=== PATIENT | female | born 1965 | race Caucasian/White ===

== ENCOUNTER 2017-03-08 17:03 | Emergency (ER) | payer OTHER ==
[2017-03-08 17:13] VITALS: RESP 18; TEMP 97.9
--- NOTE | 2017-03-08 17:37 | EDPHY ---
H & P Stated Complaint: rt flank pain Time Seen by Provider: 03/08/17 17:29 HPI/ROS: CHIEF COMPLAINT: Right flank pain HISTORY OF PRESENT ILLNESS: The patient presents to the ED with atraumatic right flank pain which began several hours prior to arrival. She describes a colicky pain which radiates to her right lower quadrant. She denies associated hematuria or dysuria. The patient has no history of pyelonephritis or nephrolithiasis. The patient has no significant past medical history. The patient currently rates her pain as a 5/10. REVIEW OF SYSTEMS: A comprehensive 10 point review of systems is otherwise negative aside from elements mentioned in the history of present illness. Source: Patient Exam Limitations: No limitations - Personal History LMP (Females 10-55): Post Menopausal Current Tetanus/Diphtheria Vaccine: Yes - Medical/Surgical History Hx Asthma: No Hx Chronic Respiratory Disease: No Hx Diabetes: No Hx Cardiac Disease: No Hx Renal Disease: No Hx Cirrhosis: No Hx Alcoholism: No Hx HIV/AIDS: No Hx Splenectomy or Spleen Trauma: No Other PMH: 2 c-sections - Social History Smoking Status: Never smoked - Physical Exam Exam: General Appearance: Alert, mild discomfort Eyes: Pupils equal and round no pallor or injection ENT, Mouth: Mucous membranes moist Respiratory: There are no retractions, lungs are clear to auscultation Cardiovascular: Regular rate and rhythm Gastrointestinal: Right CVA tenderness, tenderness to palpation right lower quadrant Neurological: A&O, normal motor function, normal sensory exam, normal cranial nerves Skin: Warm and dry, no rashes Musculoskeletal: Neck is supple nontender, right sacroiliac tenderness Extremities: symmetrical, full range of motion Constitutional: Initial Vital Signs Temperature (C) 36.6 C 03/08/17 17:11 Heart Rate 88 03/08/17 17:11 Respiratory Rate 18 03/08/17 17:11 Blood Pressure 126/75 H 03/08/17 17:11 O2 Sat (%) 97 03/08/17 17:11 O2 Delivery Mode Room Air Allergies/Adverse Reactions: No Known Allergies Allergy (Unverified 03/14/15 15:57) Home Medications: Medication Instructions Recorded Diazepam [Valium 10 MG (RX)] 10 mg PO TID PRN #20 tab 03/08/17 Hydrocodone/APAP 5/325 [[place] 1 - 2 each PO Q6 PRN #20 tab 03/08/17 5/325] Medical Decision Making - Diagnostics Imaging Results: Imaging Impressions Abdomen/Pelvis CT 03/08/17 18:04 Impression: 1. No evidence of urinary tract calculus. 2. Lobulated soft tissue mass left posterior ischiorectal fossa. The etiology is indeterminate. This abuts versus arises from the left posterior lateral rectal wall. Possibilities include enteric duplication cyst versus hematoma, teratoma, or other soft tissue tumor. 3. IUD in good position within the endometrial canal. 4. Constipation associated with the descending colon. Findings discussed with Farooq Garcia M.D. at 18:56 hour, 03/08/2017. Attention: This CT examination is specifically designed to evaluate patients who are clinically suspected of having acute obstructive uropathy. This examination does not use radiographic contrast, and as such, provides only a limited evaluation of the abdomen, pelvis and retroperitoneum. If there is further clinical suspicion for pathological conditions other than obstructive uropathy, a complete CT evaluation of the abdomen and pelvis utilizing intravenous, oral, and rectal contrast should be considered. ED Course/Re-evaluation: The patient presents to the ED with atraumatic right flank and right sacroiliac pain that began earlier today. The patient did go on a 20 mild bicycle ride but reports this is not unusual for her. She has has no history of kidney stones. Patient is noted to be neurologically intact. Given the patient's undifferentiated pain, a CT scan of the abdomen pelvis was ordered which demonstrates no evidence of nephrolithiasis. The patient did receive IV Toradol. She also received 4 mg of IV morphine. The patient's laboratory studies and urinalysis are unremarkable. I re-evaluated the patient at 8:10 p.m.. She does have right sacroiliac tenderness. I believe the etiology of her symptoms are likely sacroiliitis. She has no abnormalities noted in her neurologic examination. The patient will be discharged home with a prescription for narcotic pain medications and a muscle relaxant. She is advised to take ibuprofen as needed for pain. The patient will follow up with our clerk specialist for further evaluation. She is discharged home with customary aftercare instructions and return precautions. Differential Diagnosis: Differential diagnosis considered includes nephrolithiasis, pyelonephritis, myofascial strain, lumbar disc herniation, sacroiliitis - Data Points Laboratory Results: Laboratory Results 03/08/17 17:30 03/08/17 17:30 03/08/17 03/08/17 03/08/17 17:30 17:30 17:30 WBC 8.27 10^3/uL 10^3/uL (3.80-9.50) RBC 4.55 10^6/uL 10^6/uL (4.18-5.33) Hgb 14.4 g/dL g/dL (12.6-16.3) Hct 42.2 % % (38.0-47.0) MCV 92.7 fL fL (81.5-99.8) MCH 31.6 pg pg (27.9-34.1) MCHC 34.1 g/dL g/dL (32.4-36.7) RDW 12.3 % % (11.5-15.2) Plt Count 203 10^3/uL 10^3/uL (150-400) MPV 9.8 fL fL (8.7-11.7) Neut % (Auto) 65.2 % % (39.3-74.2) Lymph % (Auto) 26.1 % % (15.0-45.0) Grand % (Auto) 6.8 % % (4.5-13.0) Eos % (Auto) 0.7 % % (0.6-7.6) Baso % (Auto) 0.7 % % (0.3-1.7) Nucleat RBC Rel Count 0.0 % % (0.0-0.2) Absolute Neuts (auto) 5.39 10^3/uL 10^3/uL (1.70-6.50) Absolute Lymphs (auto) 2.16 10^3/uL 10^3/uL (1.00-3.00) Absolute Monos (auto) 0.56 10^3/uL 10^3/uL (0.30-0.80) Absolute Eos (auto) 0.06 10^3/uL 10^3/uL (0.03-0.40) Absolute Basos (auto) 0.06 10^3/uL 10^3/uL (0.02-0.10) Absolute Nucleated RBC 0.00 10^3/uL 10^3/uL (0-0.01) Immature Gran % 0.5 % % (0.0-1.1) Immature Gran # 0.04 10^3/uL 10^3/uL (0.00-0.10) Sodium 141 mEq/L mEq/L (134-144) Potassium 3.8 mEq/L mEq/L (3.5-5.2) Chloride 109 mEq/L mEq/L (97-110) Carbon Dioxide 23 mEq/l mEq/l (22-31) Anion Gap 9 mEq/L mEq/L (8-16) BUN 20 mg/dL mg/dL (7-23) Creatinine 0.9 mg/dL mg/dL (0.6-1.0) Estimated GFR > 60 Glucose 113 mg/dL H mg/dL (70-100) Calcium 9.9 mg/dL mg/dL (8.5-10.4) Urine Color SANDRA Urine Appearance MODERATELY TURBID Urine pH 7.0 (5.0-7.5) Ur Specific Emerson 1.031 H (1.002-1.030) Urine Protein 2+ H (NEGATIVE) Urine Ketones 1+ H (NEGATIVE) Urine Blood NEGATIVE (NEGATIVE) Urine Nitrate NEGATIVE (NEGATIVE) Urine Bilirubin NEGATIVE (NEGATIVE) Urine Urobilinogen NEGATIVE EU EU (0.2-1.0) Ur Leukocyte Esterase TRACE H (NEGATIVE) Urine RBC 1-3 /hpf /hpf (0-3) Urine WBC 1-3 /hpf /hpf (0-3) Ur Epithelial Cells TRACE /lpf /lpf (NONE-1+) Urine Bacteria TRACE /hpf H /hpf (NONE SEEN) Urine Mucus 1+ /lpf /lpf (NONE-1+) Urine Yeast PRESENT /hpf /hpf (NONE SEEN) Urine Glucose NEGATIVE (NEGATIVE) Medications Given: Discontinued Medications Ketorolac Tromethamine (Toradol) 30 mg IVP EDNOW ONE Stop: 03/08/17 17:55 Last Admin: 03/08/17 18:05 Dose: 30 mg Morphine Sulfate (Morphine) 4 mg IVP EDNOW ONE Stop: 03/08/17 18:59 Last Admin: 03/08/17 19:05 Dose: 4 mg Departure - Departure Disposition: Home, Routine, Self-Care Clinical Impression: Sacroiliitis Condition: Good Instructions: Sacroiliitis (ED) Additional Instructions: 1. Take Ibuprofen or Motrin 600 mg by mouth three times a day. 2. Please take Valium as needed for muscle relaxant. 3. Please use [place] as needed for severe pain. 4. Please follow up with the clerk specialist you have been referred to for any persistent symptoms. 5. Please return to the ED for markedly worsening symptoms, numbness or weakness in your legs, intractable pain or other concerns. Referrals: Otto Estrella MD [Medical Doctor] - As per Instructions
[2017-03-08 17:46] LABS: % IMMATURE GRANULYOCYTES 0.5 % (0.0-1.1); ABSOLUTE IMMATURE GRANULOCYTES 0.04 10^3/uL (0.00-0.10); ADD DIFF? NO; ADD MORPH? NO; ADD SCAN? NO; ATYPICAL LYMPHOCYTE FLAG 10 (0-99); FRAGMENT RBC FLAG 0 (0-99); HEMATOCRIT 42.2 % (38.0-47.0); HEMOGLOBIN 14.4 g/dL (12.6-16.3); LEFT SHIFT FLG 0 (0-99); LIPEMIA HEMOLYSIS FLAG 90 (0-99); MEAN CELL HEMOGLOBIN 31.6 pg (27.9-34.1); MEAN CELL HEMOGLOBIN CONCENTR. 34.1 g/dL (32.4-36.7); MEAN CELL VOLUME 92.7 fL (81.5-99.8); MEAN PLATELET VOLUME 9.8 fL (8.7-11.7); PLATELET CLUMPS FLAG 0 (0-99); PLATELET COUNT 203 10^3/uL (150-400); RED BLOOD CELL COUNT 4.55 10^6/uL (4.18-5.33); RED CELL DISTRIBUTION WIDTH 12.3 % (11.5-15.2)
[2017-03-08 17:48] LABS: COLOR AMBER; LEUKOCYTE ESTERASE,URINE TRACE (NEGATIVE); NITRITE,URINE NEGATIVE (NEGATIVE)
[2017-03-08 17:52] LABS: ANION GAP 9 mEq/L (8-16); CALCIUM 9.9 mg/dL (8.5-10.4); CARBON DIOXIDE 23 mEq/l (22-31); CHLORIDE 109 mEq/L (97-110); CREATININE 0.9 mg/dL (0.6-1.0); GLOMERULAR FILTRATION RATE > 60; GLUCOSE 113 mg/dL (70-100); POTASSIUM 3.8 mEq/L (3.5-5.2); SODIUM 141 mEq/L (134-144)
[2017-03-08 17:53] LABS: BACTERIA TRACE /hpf (NONE SEEN); MUCUS 1+ /lpf (NONE-1+); YEAST PRESENT /hpf (NONE SEEN)
[2017-03-08] MEDS ORDERED: KETOROLAC 30 MG/1 ML SDV IVP ONE (17:54)
[2017-03-08] MEDS ORDERED: HYDROCOD/APAP 5/325 PREPACK#6 BTL TAKEHOME ONE (20:14)
[2017-03-08] MEDS ORDERED: DIAZEPAM 5 MG PREPACK#4 BTL TAKEHOME ONE (20:14)
[2017-03-08] MEDS ORDERED: fentaNYL 100 MCG/2 ML INJ IVP ONE (20:27)
[2017-03-08] MEDS ORDERED: fentaNYL 100 MCG/2 ML INJ ONE (20:28)
[2017-03-08 21:03] VITALS: BP 104/52; PULSE 68; O2SAT 95
== END 2017-03-08 21:02 | disposition home or self-care (01) ==
DX: M46.1 Sacroiliitis, not elsewhere classified (principal)
CPT/HCPCS: 96374; J1885; J3010

== ENCOUNTER 2017-04-27 12:40 | Day surgery (SDC) | payer OTHER ==
[2017-04-27] MEDS ORDERED: LR 1,000 ML IV ONE (12:56)
[2017-04-27] MEDS ORDERED: MIDAZOLAM 2 MG/2 ML VIAL IVP ONE (13:35)
--- NOTE | 2017-04-27 13:37 | PDANEPAE ---
ANE Past Medical History - Cardiovascular History Hx Hypertension: No Hx Arrhythmias: No Hx Chest Pain: No Hx Coronary Artery / Peripheral Vascular Disease: No Hx CHF / Valvular Disease: No Hx Palpitations: No - Pulmonary History Hx COPD: No Hx Asthma/Reactive Airway Disease: No Hx Recent Upper Respiratory Infection: No Hx Oxygen in Use at Home: No - Neurologic History Hx Cerebrovascular Accident: No Hx Seizures: No Hx Dementia: No - Endocrine History Hx Diabetes: No - Renal History Hx Renal Disorders: No - Liver History Hx Hepatic Disorders: No - Neurological & Psychiatric Hx Hx Neurological and Psychiatric Disorders: Yes - Cancer History Hx Cancer: No - Congenital Disorder History Hx Congenital Disorders: No - GI History Hx Gastrointestinal Disorders: Yes - Chronic Pain History Chronic Pain: No ANE Review of Systems - Exercise capacity METS (RN): 4 METS ANE Patient History - Allergies Allergies/Adverse Reactions: No Known Allergies Allergy (Verified 04/20/17 12:22) - Home Medications Home Medications: NK [No Known Home Meds] 04/20/17 [Last Taken Unknown] - NPO status NPO Since - Liquids (Date): 04/26/17 NPO Since - Liquids (Time): 07:00 NPO Since - Solids (Date): 04/26/17 NPO Since - Solids (Time): 09:00 - Smoking Hx Smoking Status: Never smoked ANE Labs/Vital Signs - Vital Signs Blood Pressure: 128/77 Heart Rate: 71 Respiratory Rate: 16 O2 Sat (%): 96 Height: 163.83 cm Weight: 72.575 kg ANE Physical Exam - Airway Neck exam: FROM Mouth exam: normal dental/mouth exam - Pulmonary Pulmonary: no respiratory distress, no rales or rhonchi, clear to auscultation - Cardiovascular Cardiovascular: regular rate and rhythym, no murmur, rub, or gallop - ASA Status ASA Status: II ANE Anesthesia Plan Anesthesia Plan: MAC
[2017-04-27] MEDS ORDERED: PROPOFOL 200 MG/20 ML VIAL ONE ×3 (13:39→14:40)
--- NOTE | 2017-04-27 13:42 | PDGENHP ---
History & Physical Chief Complaint: abnl imaging History of Present Illness: 51 year old female with a history of adenomas presents for evaluaiton of a soft issue lesion in perirecta. Pertinent Past, Social, Family History: SoHx, PMHx, FaMHx reviewed Relevant Physical Exam: HEENT anicteric. Cv RRR + s1s2. Lungs CTAB. Abd soft , nt, nd, + bs Cardiorespiratory Assessment: asa 2
[2017-04-27] MEDS ORDERED: PROMETHAZINE HCL 25 MG/ML INJ IVP PRN (14:01)
[2017-04-27] MEDS ORDERED: ONDANSETRON 4 MG/2 ML VIAL IVP PRN (14:01)
[2017-04-27] MEDS ORDERED: NALOXONE HCL 0.4 MG/ML INJ IVP PRN (14:01)
[2017-04-27] MEDS ORDERED: fentaNYL 100 MCG/2 ML INJ IVP PRN (14:01)
--- NOTE | 2017-04-27 14:09 | POSTOPPROG ---
Post Op Note Date of Operation: 04/27/17 Surgeon: Ivan Alfredo Anesthesia: IV Sedation Pre-op Diagnosis: perirectal lesion Post-op Diagnosis: perirectal lesion/rectal polyp Indication: hx of polyps, perirectal polyp Procedure: colonoscopy with bx, EUS with FNA Findings: perirectal lesion, rectal polyp Inf/Abcess present in the surg proc area at time of surgery?: No EBL: Minimal
[2017-04-27] MEDS ORDERED: levOFLOXACIN 500 MG/DEXTROSE/100 ML BAG IV ONE (14:28)
[2017-04-27] MEDS ORDERED: levOFLOXACIN 500 MG/DEXTROSE 100 ML IV ONE (15:00)
[2017-04-27 15:19] VITALS: TEMP 97.7
--- NOTE | 2017-04-27 16:01 | POSTANESTH ---
Post Anesthetic Evaluation Cardiovascular Status: Normal, Stable, Similar to Pre-Op Cond Respiratory Status: Normal, Stable, Similar to Pre-op Cond. Level of Consciousness/Mental Status: Can Participate in Eval, Mildly Sleepy, Arousable Pain Control: Adequate, Prn Tx Ordered Nausea/Vomiting Control: Adequate, Prn Tx Ordered Complications Possibly Related to Anesthesia: None Noted
[2017-04-27 16:08] VITALS: BP 109/44
[2017-04-27 16:17] VITALS: PULSE 63; RESP 12; O2SAT 98
--- NOTE | 2017-04-27 19:44 | GPN ---
[f rep st] PROCEDURE NOTE DATE OF PROCEDURE: 04/27/2017 PROCEDURE: Colonoscopy with biopsy, endoscopic ultrasound with fine-needle aspiration. INDICATION: The patient is a 51-year-old female with a history of polyps who presents for surveillance colonoscopy as well as evaluation of a perirectal lesion seen on imaging. CONSENT: Risks, benefits, and alternatives of the procedure were discussed in great detail with the patient. Risk of infection, bleeding, perforation, and sedation were discussed. All questions were answered. Informed consent was obtained. MEDICATIONS: Propofol. Please see anesthesia record for details. ESTIMATED BLOOD LOSS: Insignificant. COLONOSCOPIC EVALUATION: A rectal exam was performed and no palpable mass was appreciated. The Olympus colonoscope was introduced into the rectum and advanced to the cecum, where the ileocecal valve and appendiceal orifice were seen. The colonic mucosa was carefully examined on both insertion and withdrawal of the scope. The colon prep was good. In the rectum, a 2 mm polyp was seen and removed by biopsy forceps. ENDOSCOPIC ULTRASOUND EXAMINATION: The Olympus linear echoendoscope was introduced into the rectum and advanced to the sigmoid colon. In the rectal area about 8cms from the verge, a perirectal lesion was visualized. It had both a cystic and adjacent hypoechoic area. The cystic portion measured approximately 4 x 3.5 cm and had a thin wall. Doppler was used to rule out intervening vessels. One transrectal pass was made with a 25 gauge needle. Approximately 4 cc of fluid was aspirated. Cytology was present and on preliminary report only bland acellular debris was noted. Contigious with the cyst was a more hypoechoic area which measured about 3cms. Doppler was used to rule out intervening vessels. One transrectal pass was made into this cyst lesion with a 25 gauge needle. Cytology was present and adequate cellularity was confirmed. No suspicious perisigmoid or perirectal lymph nodes were appreciated. IMPRESSION: 1. 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 Recommend to follow up on biopsy and FNA results. 2. Repeat colonoscopy in 5 years. /[id number]/MODL MTDD
== END 2017-04-27 16:25 | disposition home or self-care (01) ==
LOC: FSGY 12:40
PROVIDERS: ATTEND Internal Medicine Gastroenterology
PROC: 0D9 Gastrointestinal System, Drainage (ICD-10-PCS; principal; 2017-04-27 14:00)
PROC: 0DBP8ZX Excision of Rectum, Via Natural or Artificial Opening Endoscopic, Diagnostic (ICD-10-PCS; principal; 2017-04-27 14:00)
DX: D36.9 Benign neoplasm, unspecified site (principal); K62.1 Rectal polyp
CPT/HCPCS: J1956; J2250; J2704

== ENCOUNTER 2017-09-18 05:56 | Observation (INO) | payer OTHER ==
[2017-09-18] MEDS ORDERED: ceFAZolin 2 GM/SWFI 2 GM/20 ML SYR IVP ONE (06:05)
[2017-09-18] MEDS ORDERED: DEXAMETHASONE 4 MG/ML VIAL IVP ONE (06:05)
[2017-09-18] MEDS ORDERED: LIDOCAINE 1% 2 ML INJ ID PRN (06:06)
[2017-09-18] MEDS ORDERED: LR 1,000 ML IV ONE (06:06)
--- NOTE | 2017-09-18 06:25 | PDHPUP ---
History & Physical Update H&P update statement: This history and physical update is based on an assessment of the patient which was completed after admission or registration (within 24 hours), but prior to the surgery/procedure. H&P update: H&P reviewed & patient examined, no change in patient's condition since H&P completed
[2017-09-18] MEDS ORDERED: AVITENE POWDER 1 GM JAR TP ONE (07:04)
[2017-09-18] MEDS ORDERED: BUPIVACAINE 0.25% 30 ML SDV ONE (07:04)
[2017-09-18] MEDS ORDERED: CHLORHEXIDINE GLUC HIBICLENS 118 ML BTL TP ONE (07:04)
[2017-09-18] MEDS ORDERED: THROMBIN (BOVINE) 20,000 UNIT VIAL TP ONE (07:04)
--- NOTE | 2017-09-18 07:07 | PDHPUP ---
History & Physical Update H&P update statement: This history and physical update is based on an assessment of the patient which was completed after admission or registration (within 24 hours), but prior to the surgery/procedure. H&P update: H&P reviewed & patient examined, no change in patient's condition since H&P completed (Consent signed and site marked. All questions answered.)
--- NOTE | 2017-09-18 07:10 | PDANEPAE ---
ANE Past Medical History - Cardiovascular History Hx Hypertension: No Hx Arrhythmias: No Hx Chest Pain: No Hx Coronary Artery / Peripheral Vascular Disease: No Hx CHF / Valvular Disease: No Hx Palpitations: No Cardiovascular History Comment: cardiac testing in 2015-WNL - Pulmonary History Hx COPD: No Hx Asthma/Reactive Airway Disease: No Hx Recent Upper Respiratory Infection: No Hx Oxygen in Use at Home: No Hx Sleep Apnea: No Sleep Apnea Screening Result - Last Documented: Negative - Neurologic History Hx Cerebrovascular Accident: No Hx Seizures: No Hx Dementia: No - Endocrine History Hx Diabetes: No - Renal History Hx Renal Disorders: No - Liver History Hx Hepatic Disorders: No - Neurological & Psychiatric Hx Hx Neurological and Psychiatric Disorders: No Neurological / Psychiatric History Comment: low back pain-going to PT - Cancer History Hx Cancer: No - Congenital Disorder History Hx Congenital Disorders: No - GI History Hx Gastrointestinal Disorders: Yes Gastrointestinal History Comment: pelvic mass - Other Health History Other Health History: "pelvic mass/lower back" - Chronic Pain History Chronic Pain: No - Surgical History Prior Surgeries: tonsillectomy age 4. C section 1997, 2001 ANE Review of Systems Review of Systems: - Exercise capacity METS (RN): 4 METS ANE Patient History - Allergies Allergies/Adverse Reactions: No Known Allergies Allergy (Verified 08/18/17 14:05) - Home Medications Home Medications: Multi-Day Vitamins 08/18/17 [Last Taken 09/04/17] - NPO status NPO Since - Liquids (Date): 09/17/17 NPO Since - Liquids (Time): 23:30 NPO Since - Solids (Date): 09/17/17 NPO Since - Solids (Time): 21:00 - Smoking Hx Smoking Status: Never smoked ANE Labs/Vital Signs - Vital Signs Blood Pressure: 118/68 Heart Rate: 96 Respiratory Rate: 16 O2 Sat (%): 96 Height: 165.1 cm Weight: 72.575 kg ANE Physical Exam - Airway Neck exam: FROM Mallampati Score: Class 1 Mouth exam: normal dental/mouth exam - Pulmonary Pulmonary: no respiratory distress - Cardiovascular Cardiovascular: regular rate and rhythym - ASA Status ASA Status: I ANE Anesthesia Plan Anesthesia Plan: general endotracheal anesthesia
[2017-09-18] MEDS ORDERED: MIDAZOLAM 2 MG/2 ML VIAL ONE (07:14)
[2017-09-18] MEDS ORDERED: fentaNYL 250 MCG/5 ML INJ ONE (07:14)
[2017-09-18] MEDS ORDERED: PROPOFOL 200 MG/20 ML VIAL ONE (07:14)
[2017-09-18] MEDS ORDERED: KETOROLAC 30 MG/1 ML SDV ONE (07:15)
[2017-09-18] MEDS ORDERED: DEXAMETHASONE 4 MG/ML VIAL ONE ×2 (07:15)
[2017-09-18] MEDS ORDERED: LIDOCAINE 2% 100 MG/5 ML SYR ONE (07:15)
[2017-09-18] MEDS ORDERED: METOCLOPRAMIDE 10 MG/2 ML VIAL ONE (07:15)
[2017-09-18] MEDS ORDERED: ROCURONIUM 50 MG/5 ML VIAL ONE (07:15)
[2017-09-18] MEDS ORDERED: BACITRACIN 50,000 UNITS/10 ML SYR IRR ONE (08:12)
[2017-09-18] MEDS ORDERED: PROPOFOL/EMULSION 500 MG/50 ML BOTTLE IV ONE (08:42)
--- NOTE | 2017-09-18 10:04 | POSTOPPROG ---
Post Op Note Date of Operation: 09/18/17 Surgeon: Daniel Rondon (, FACS) Termite Inspector: co surgeon with Dr. Rich Reynoso Anesthesiologist: Teo Nunes MD Pre-op Diagnosis: pre-sacral tumor Post-op Diagnosis: same Procedure: resection pre-sacral tumor/coccygectomy Findings: dermoid cyst Inf/Abcess present in the surg proc area at time of surgery?: No
[2017-09-18] MEDS ORDERED: PROMETHAZINE HCL 25 MG/ML INJ IVP PRN (10:06)
[2017-09-18] MEDS ORDERED: ONDANSETRON 4 MG/2 ML VIAL IVP PRN ×2 (10:06→10:07)
[2017-09-18] MEDS ORDERED: ACETAMINOPHEN 325 MG TAB PO PRN (10:06)
[2017-09-18] MEDS ORDERED: HYDROmorphONE/DILAUDID 1 MG/ML INJ IVP PRN ×2 (10:06→10:07)
[2017-09-18] MEDS ORDERED: fentaNYL 100 MCG/2 ML INJ IVP PRN (10:07)
[2017-09-18] MEDS ORDERED: ALBUTEROL 3 ML DEYVIAL IH PRN (10:07)
[2017-09-18] MEDS ORDERED: ACETAMINOPHEN 500 MG TAB PO PRN (10:07)
[2017-09-18] MEDS ORDERED: HYDROCODONE/APAP 5/325 TAB PO PRN (10:07)
[2017-09-18] MEDS ORDERED: OXYCODONE/APAP 5/325 TAB PO PRN (10:07)
[2017-09-18] MEDS ORDERED: NALOXONE HCL 0.4 MG/ML INJ IVP PRN (10:07)
--- NOTE | 2017-09-18 10:08 | POSTANESTH ---
Post Anesthetic Evaluation Cardiovascular Status: Similar to Pre-Op Cond Respiratory Status: Similar to Pre-op Cond. Level of Consciousness/Mental Status: Mildly Sleepy, Arousable Pain Control: Adequate, Prn Tx Ordered Nausea/Vomiting Control: Adequate, Prn Tx Ordered Complications Possibly Related to Anesthesia: None Noted
[2017-09-18] MEDS ORDERED: ceFAZolin 2 GM/DEXTROSE 100 ML IV SCH (14:00)
[2017-09-18] MEDS: LR 1,000 ML IV SCH ×2 (14:25→23:49)
[2017-09-18] MEDS: ceFAZolin 2 GM in D5W 100 ML IV SCH ×2 (14:46→23:49)
[2017-09-18] MEDS: OXYCODONE/APAP 5/325 TAB PO PRN ×2 (16:29→22:09)
--- NOTE | 2017-09-18 17:18 | GOP ---
[f rep st] OPERATIVE REPORT DATE OF OPERATION: CO-SURGEONS: Daniel Rondon MD, FACS and Rich Reynoso MD ANESTHESIA: General endotracheal. ANESTHESIOLOGIST: Baldemar Nunes MD PREOPERATIVE DIAGNOSIS: Presacral tumor. POSTOPERATIVE DIAGNOSIS: Presacral tumor. PROCEDURE PERFORMED: 1. Resection of presacral tumor. 2. Coccygectomy. FINDINGS: Soft cystic mass in the presacral space measuring approximately 4 x 5 x 5 cm submitted for gross inspection, consistent with dermoid cyst. Permanent section pending. ESTIMATED BLOOD LOSS: 50 mL. DESCRIPTION OF PROCEDURE: After informed consent was obtained, the patient was brought to the operating room and placed under general anesthesia and then positioned prone on the Collins frame carefully padding all pressure points. The back and perineum were prepped with Betadine. Before proceeding, a time- out and identification of the patient was performed. Neuromonitoring needles were placed into the anoderm on either side of the anal orifice and the anus was isolated from the surgical field using a thousand drape. Subsequently an Ioban was placed over the lower back, buttocks, and internatal cleft. The planned incision site was infiltrated with 0.25% Marcaine , incised longitudinally, and dissection carried down to the coccyx. The fascia between the tip of the coccyx and the levator musculature was incised. The muscles were split in the midline and the tumor came into view. It was somewhat encapsulated and was dissected circumferentially and inferiorly to the level of the sphincter muscles. The coccyx was freed using combination of sharp and blunt dissection from the posterior wall of the cyst and the coccyx was resected using a rongeur. Hemostasis was secured with bipolar cautery and bone wax. Dissecting laterally, the levator muscles were retracted and the cystic structure was dissected down to the rectal wall circumferentially. It was most closely adherent to the superior aspect of the tumor and the outer muscular coat of the rectum. Slow careful dissection was performed cautiously to avoid puncturing the cyst; however, as we were mobilizing it along the left posterolateral wall, a small tear occurred in the cyst which resulted in extrusion of a small amount of contents. This was immediately evacuated and the wound irrigated. After we secured this small leak, the remainder of the cyst was detached from the posterior rectal wall including a portion of the outer muscular coat. Specimen was removed from the field and submitted for gross inspection as well as permanent section. Wound was irrigated. Hemostasis was secured with cautery. Topical thrombin and Gelfoam were placed into the wound. The cut edges of the coccyx were covered with bone wax to aid in hemostasis. Once hemostasis appeared secure, the levators were approximated with 2-0 Vicryl suture. The deep fascia was closed with interrupted 2-0 Vicryl sutures. Subcutaneous tissues were closed with 3-0 Vicryl suture and the skin was closed with 4-0 Monocryl suture in a subcuticular fashion. Topical Dermabond was applied. The patient was returned to the recovery room extubated in satisfactory condition. Needle, sponge, and instrument counts were correct. The complex anatomy of the presacral space and the potential need for sacral resection in this case required the expertise of two surgeons working together to complete the procedure in a safe and timely fashion. CO-SURGEONS: Daniel Rondon MD, ALEXANDREA Reynoso MD COMPLICATIONS: None. /[id number]/MODL MTDD
--- NOTE | 2017-09-18 17:58 | GOP ---
[f rep st] OPERATIVE REPORT DATE OF OPERATION: 09/18/2017 SURGEON: Rich Reynoso MD CO-SURGEON: Dr. Daniel Rondon. ANESTHESIA: General. COMPLICATIONS: None. PREOPERATIVE DIAGNOSIS: Pre-sacral mass. POSTOPERATIVE DIAGNOSIS: Pre-sacral tumor. PROCEDURE PERFORMED: 1. Coccygectomy. 2. Pre-sacral gross total tumor resection. 3. Use of neuromonitoring. FINDINGS: per imaging SPECIMENS: The entire mass was sent to Pathology for permanent analysis. ESTIMATED BLOOD LOSS: 40 mL. INDICATIONS: Patient is a 51-year-old woman who was found to have likely an incidental mass located in her pre-sacral space. She underwent a biopsy by GI which was nondiagnostic. Given the fact that this lesion was growing and did not have diagnostic tissue, we decided to proceed forth with surgery as described above. DESCRIPTION OF PROCEDURE: Patient was brought to the operating theater and underwent general endotracheal anesthesia without complications. She had Venodynes, FEMI hose, and the appropriate lines placed by Anesthesia. She was flipped prone onto the Collins frame, and all bony prominences inspected and padded. The lower pelvis, buttocks, and perianal area were then prepped and draped in the usual sterile surgical fashion. A time-out was completed per protocol and the patient received antibiotics within 1 hour of incision. A midline incision was made just over the coccyx and taken down with the scalpel blade. Then using monopolar, the incision was taken down through the subcutaneous tissues and we skeletonized the coccyx and the inferior soft tissues. Deep retractor was placed to maintain our exposure. At this point, we skeletonized the distal aspect of the coccyx and removed the distal 2-3 segments using the Leksell rongeur. The bony was waxed for hemostasis. Using very careful microsurgical technique with the Bovie, pickups, and Metzenbaum scissors, we circumferentially dissected the entire lesion in its entirety from the subcutaneous tissues, which was located eccentrically to the left side in the pre-sacral space. A small aspect of the lesion was breached on the ventral- lateral aspect on the left side just immediately prior to us removing the entire tumor and passing it off the field. The contents of the lesion were suctioned at the time of the breach. Once we had complete resection of the tumor , we sent it off to Pathology for permanent analysis. We obtained hemostasis with the bipolar and the wound was irrigated copiously with bacitracin irrigation. A small layer of Gel-Foam with thrombin was placed in the surgical cavity for hemostasis. The wound was then closed in multiple layers using Vicryl sutures in deep layers and running Monocryl stitch for the skin. The patient's wound was dressed sterilely. She was then flipped supine onto the transfer cart. She was awakened, extubated, and taken to the recovery room in stable condition. There were no complications and no noted changes on neuromonitoring throughout the procedure. /[id number]/MODL MTDD
[2017-09-18 19:19] VITALS: RESP 14
[2017-09-19 03:36] VITALS: O2SAT 97
--- NOTE | 2017-09-19 06:33 | PDDCSUM ---
Discharge Summary Discharge Summary: DOA: 09/18/17 DOD: 09/19/17 Dx: presacral tumor Procedure: resection pre-sacral tumor/coccygectomy 09/18/17 Course: Valeria was admitted for observation after resection of a pre-sacral tumor and coccygectomy for what appear to be a dermoid cyst. Her post op course was unremarkable. She had a fever shortly after surgery that resolved. She was ambulatory and her pain was controlled with oral Percocet. Her wound was clean and dry without signs of infection at the time of discharge. We discussed wound care, activity and restrictions prior to discharge. She will follow up in my office in 10 days. DC medications: Percocet 5/325 #20 Senokot S #30 prn Ibuprofen 600mg po TID
[2017-09-19 07:25] VITALS: BP 109/79; PULSE 78; TEMP 98.1
[2017-09-19] MEDS: OXYCODONE/APAP 5/325 TAB PO PRN (07:41)
[2017-09-19] MEDS ORDERED: ENOXAPARIN 40 MG/0.4 ML SYR SC SCH (09:00)
[2017-09-19] MEDS ORDERED: IBUPROFEN 600 MG TAB PO SCH (09:00)
--- NOTE | 2017-09-19 14:38 | ASDISCHSUM ---
Discharge Information Plan Status:Home with No Needs Medically Cleared to Leave: Discharge Date:09/19/2017 08:56 AM CM D/C Disposition:Home, Routine, Self-Care ADT D/C Disposition:Home, Routine, Self-Care Projected Discharge Date:09/19/2017 08:56 AM Transportation at D/C: Discharge Delay Reason: Follow-Up Date:09/19/2017 08:56 AM Discharge Slot: Final Diagnosis: Placement Information Patient Contact Information Contact Name:FIDELIA Relationship:Armando Address: Work Phone: City: [place] Phone: State/Zip Code: Email: Financial Information Financial Class:HMO and PPO Plans Primary Plan Desc:[facility] PPO POS Primary Plan Number:[id number] Secondary Plan Desc: Secondary Plan Number: Assessment Information [facility] CM Progress Note CM Note CM Note Notes: Pt. d/c'ed independently this morning per RN. Date Signed: 09/19/2017 02:37 PM Electronically Signed By:Xin Dobbs LCSW Intervention Information Intervention Type:*Incorrect Registration Date of Service:09/18/2017 11:15 AM Patient Type:Observation Staff Member:DALY Smalls Susan Hours: Discipline: Severity: Comment:
== END 2017-09-19 08:56 | disposition home or self-care (01) ==
LOC: F3E 05:56 → INTOOBSV 05:56 → F3E 11:13
PROVIDERS: ADMIT Surgery; ATTEND Surgery
DX: L72.0 Epidermal cyst (principal)
CPT/HCPCS: 49215; G0378; J0171; J0690; J1100; J1650; J1885; J2001; J2250; J2704; J2765; J3010